=== PATIENT | male | born 1940 | race Caucasian/White ===

== ENCOUNTER 2018-11-08 16:06 | Emergency (ER) | payer MEDICARE ==
[~2018-11-08] VITALS: Ht 167.6 cm; Wt 90.7 kg
[~2018-11-08 16:06] MED LIST: ASPI81CH; ATOR10; FEXO60; LOSHYD PO; METF500; MULVITMIND; OXYACE5T PO; PENVK500 PO; RXOXYACE PO; RXPENVK250 PO; SIMV10 PO; VALS80
[2018-11-08 18:11] LABS: BASOPHILS ABSOLUTE AUTO 0.03 K/mm3 (0.00-0.23); BASOPHILS PERCENT AUTO 0 % (0-2); EOSINOPHILS ABSOLUTE AUTO 0.28 K/mm3 (0.00-0.68); EOSINOPHILS PERCENT AUTO 4 % (0-6); Hematocrit 40.7 % (37.0-53.0); Hemoglobin 13.3 g/dL (13.5-17.5); IMMATURE GRAN ABSOLUTE AUTO 0.02 K/mm3 (0.00-0.10); IMMATURE GRAN PERCENT AUTO 0 % (0-1); LYMPHOCYTES ABSOLUTE AUTO 1.79 K/mm3 (0.84-5.20); LYMPHOCYTES PERCENT AUTO 26 % (21-46); MONOCYTES ABSOLUTE AUTO 0.49 K/mm3 (0.16-1.47); MONOCYTES PERCENT AUTO 7 % (4-13); Mean Corpuscular HGB 31.7 pg (26.0-34.0); Mean Corpuscular HGB Conc 32.7 g/dL (31.5-36.5); Mean Corpuscular Volume 97 fL (80-100); Mean Platelet Volume 10.9 fL (9.1-12.4); NEUTROPHILS ABSOLUTE AUTO 4.35 K/mm3 (1.96-9.15); NEUTROPHILS PERCENT AUTO 63 % (41-73); Platelet Count 147 K/mm3 (150-400); RDW Coefficient Variation 11.9 % (11.7-14.2); RDW Standard Deviation 42.4 fL (35.1-46.3); White Blood Cell Count 6.96 K/mm3 (4.00-11.30)
[2018-11-08 18:48] LABS: Alanine Aminotransfer (ALT/SGP 25 U/L (12-78); Albumin/Globulin Ratio 1.4 (0.8-1.8); Alk Phos 49 U/L (50-136); Anion Gap 6 mmol/L (6-16); Aspartate Aminotrans (AST/SGOT 16 U/L (12-37); Bilirubin, Total 0.5 mg/dL (0.1-1.0); Blood Urea Nitrogen 17 mg/dL (8-24); Bun/Creatinine Ratio 23.2 (12.0-20.0); CO2, Blood 27 mmol/L (21-32); Calcium, Blood 8.8 mg/dL (8.5-10.1); Chloride, Blood 109 mmol/L (98-108); Creatinine, Blood 0.73 mg/dL (0.60-1.20); Globulin, Blood 2.8 g/dL (2.2-4.0); Glomerular Filtration Rate >60 (60-); Glucose, Blood 102 mg/dL (70-99); Potassium, Blood 4.3 mmol/L (3.5-5.5); Sodium, Blood 142 mmol/L (136-145); Total Protein, Blood 6.8 g/dL (6.4-8.2)
[2018-11-08 19:53] LABS: Source, Urine Clean Catch
[2018-11-08 19:59] LABS: Appearance, Urine Clear (Clear); Bilirubin, Urine Neg (Neg); Blood, Urine Neg (Neg); Color, Urine Yellow (P-Yellow); Glucose Qualitative, Urine Neg (Neg); Ketones, Urine Neg (Neg); Leukocyte Esterase, Urine Neg (Neg); Nitrite, Urine Neg (Neg); Protein, Urine Neg (Neg); Urobilinogen, Urine NORM (Normal)
== END 2018-11-08 22:22 | disposition home or self-care (01) ==
LOC: ER 16:06
PROVIDERS: Physician Assistant
DX: R42 Dizziness and giddiness (principal); Z88.1 Allergy status to other antibiotic agents; Z79.899 Other long term (current) drug therapy; Z79.82 Long term (current) use of aspirin; Z87.891 Personal history of nicotine dependence
CPT/HCPCS: 36415; 70450; 80053; 81003; 85025; 93005; 93010; 99284-25

== ENCOUNTER 2019-08-11 16:48 | Emergency (ER) | payer OTHER, MEDICARE ==
[~2019-08-11] VITALS: Ht 167.6 cm; Wt 88.9 kg
[2019-08-11 17:30] LABS: BASOPHILS ABSOLUTE AUTO 0.03 K/mm3 (0.00-0.23); BASOPHILS PERCENT AUTO 1 % (0-2); EOSINOPHILS ABSOLUTE AUTO 0.27 K/mm3 (0.00-0.68); EOSINOPHILS PERCENT AUTO 5 % (0-6); Hematocrit 40.4 % (37.0-53.0); Hemoglobin 13.5 g/dL (13.5-17.5); IMMATURE GRAN ABSOLUTE AUTO 0.02 K/mm3 (0.00-0.10); IMMATURE GRAN PERCENT AUTO 0 % (0-1); LYMPHOCYTES ABSOLUTE AUTO 1.46 K/mm3 (0.84-5.20); LYMPHOCYTES PERCENT AUTO 26 % (21-46); MONOCYTES ABSOLUTE AUTO 0.45 K/mm3 (0.16-1.47); MONOCYTES PERCENT AUTO 8 % (4-13); Mean Corpuscular HGB 32.4 pg (26.0-34.0); Mean Corpuscular HGB Conc 33.4 g/dL (31.5-36.5); Mean Corpuscular Volume 97 fL (80-100); Mean Platelet Volume 10.8 fL (9.1-12.4); NEUTROPHILS ABSOLUTE AUTO 3.33 K/mm3 (1.96-9.15); NEUTROPHILS PERCENT AUTO 60 % (41-73); Platelet Count 150 K/mm3 (150-400); RDW Coefficient Variation 12.5 % (11.7-14.2); RDW Standard Deviation 44.8 fL (35.1-46.3); Red Blood Cell Count 4.17 M/mm3 (4.30-5.90); White Blood Cell Count 5.56 K/mm3 (4.00-11.30)
[2019-08-11 17:54] LABS: Alanine Aminotransfer (ALT/SGP 27 U/L (12-78); Albumin, Blood 3.9 g/dL (3.4-5.0); Albumin/Globulin Ratio 1.3 (0.8-1.8); Alk Phos 51 U/L (50-136); Anion Gap 5 mmol/L (6-16); Aspartate Aminotrans (AST/SGOT 18 U/L (12-37); Bilirubin, Total 0.3 mg/dL (0.1-1.0); Blood Urea Nitrogen 16 mg/dL (8-24); Bun/Creatinine Ratio 18.6 (12.0-20.0); CO2, Blood 27 mmol/L (21-32); Calcium, Blood 8.3 mg/dL (8.5-10.1); Chloride, Blood 106 mmol/L (98-108); Creatinine, Blood 0.86 mg/dL (0.60-1.20); Glomerular Filtration Rate >60 (60-); Glucose, Blood 98 mg/dL (70-99); Potassium, Blood 3.8 mmol/L (3.5-5.5); Sodium, Blood 138 mmol/L (136-145); Total Protein, Blood 6.9 g/dL (6.4-8.2); Troponin I <0.015 ng/mL (0.000-0.040)
[2019-08-11] MEDS ORDERED: MOTION RELIEF25 MG PO (19:43)
[2019-08-11] MEDS ORDERED: Valium5 MG PO (19:43)
== END 2019-08-11 19:57 | disposition home or self-care (01) ==
LOC: ER 16:48
PROVIDERS: Physician Assistant
DX: H81.10 Benign paroxysmal vertigo, unspecified ear (principal); Z88.1 Allergy status to other antibiotic agents; Z79.899 Other long term (current) drug therapy; Z79.82 Long term (current) use of aspirin; Z87.891 Personal history of nicotine dependence
CPT/HCPCS: 36415; 80053; 83690; 84484; 85025; 93005; 93010; 96361; 96374; 96375; 99284-25; J2405; J3360; J7030

== ENCOUNTER → 2019-11-17 | Outpatient (CLI) | payer MEDICARE ==
[~2019-11-17] MED LIST changes: +MOTION RELIEF25 MG PO; +Valium5 MG PO
[2019-11-17 17:45] LABS: Influenza A Negative (NEGATIVE); Influenza B Positive (NEGATIVE)
== END | disposition home or self-care (01) ==
LOC: LAB 17:08 → LAB SHORT 17:08
PROVIDERS: Family Medicine
DX: R05 Cough (principal); R50.9 Fever, unspecified
CPT/HCPCS: 87804

== ENCOUNTER 2022-09-01 19:43 | Emergency (ER) | payer MEDICARE ==
[~2022-09-01] VITALS: Ht 167.6 cm; Wt 88.5 kg
== END 2022-09-02 00:45 | disposition home or self-care (01) ==
LOC: ER 19:43
DX: H43.12 Vitreous hemorrhage, left eye (principal); S42.034A Nondisplaced fracture of lateral end of right clavicle, initial encounter for closed fracture; Y04.2XXA Assault by strike against or bumped into by another person, initial encounter; Y07.499 Other family member, perpetrator of maltreatment and neglect; Z79.82 Long term (current) use of aspirin; Z79.899 Other long term (current) drug therapy; Z88.1 Allergy status to other antibiotic agents; Z87.891 Personal history of nicotine dependence
CPT/HCPCS: 70450; 70480; 73030; A9270

== ENCOUNTER 2022-09-03 11:26 | Emergency (ER) | payer MEDICARE ==
[~2022-09-03] VITALS: Ht 167.6 cm; Wt 81.7 kg
== END 2022-09-03 15:38 | disposition home or self-care (01) ==
LOC: ER 11:26
DX: S05.92XA Unspecified injury of left eye and orbit, initial encounter (principal); Y04.2XXA Assault by strike against or bumped into by another person, initial encounter; Z79.82 Long term (current) use of aspirin; Z79.899 Other long term (current) drug therapy; Z87.891 Personal history of nicotine dependence
CPT/HCPCS: A9270

== ENCOUNTER 2023-02-24 15:41 | Emergency (ER) | payer OTHER ==
[~2023-02-24] VITALS: Ht 167.6 cm; Wt 81.7 kg
[2023-02-24 16:09] VITALS: BP 143/87
== END 2023-02-24 16:30 | disposition home or self-care (01) ==
LOC: ER 15:41
DX: S51.811A Laceration without foreign body of right forearm, initial encounter (principal); W22.8XXA Striking against or struck by other objects, initial encounter; Z88.1 Allergy status to other antibiotic agents; Z79.899 Other long term (current) drug therapy; Z79.82 Long term (current) use of aspirin; Z87.891 Personal history of nicotine dependence
CPT/HCPCS: 99282

== ENCOUNTER 2024-03-06 10:46 | Emergency (ER) | payer MEDICARE ==
[~2024-03-06] VITALS: Ht 167.6 cm; Wt 81.7 kg
[~2024-03-06 10:46] MED LIST changes: +GLYDO6 M2 MM
[2024-03-06 10:49] VITALS: BP 174/69
[2024-03-06 11:09] LABS: BASOPHILS ABSOLUTE AUTO 0.04 K/mm3 (0.00-0.23); BASOPHILS PERCENT AUTO 1 % (0-2); EOSINOPHILS ABSOLUTE AUTO 0.32 K/mm3 (0.00-0.68); EOSINOPHILS PERCENT AUTO 4 % (0-6); Hematocrit 40.4 % (37.0-53.0); Hemoglobin 13.8 g/dL (13.5-17.5); IMMATURE GRAN ABSOLUTE AUTO 0.03 K/mm3 (0.00-0.10); IMMATURE GRAN PERCENT AUTO 0 % (0-1); LYMPHOCYTES ABSOLUTE AUTO 1.29 K/mm3 (0.84-5.20); LYMPHOCYTES PERCENT AUTO 17 % (21-46); MONOCYTES ABSOLUTE AUTO 0.38 K/mm3 (0.16-1.47); MONOCYTES PERCENT AUTO 5 % (4-13); Mean Corpuscular HGB 32.2 pg (26.0-34.0); Mean Corpuscular HGB Conc 34.2 g/dL (31.5-36.5); Mean Corpuscular Volume 94 fL (80-100); Mean Platelet Volume 11.2 fL (9.1-12.4); NEUTROPHILS PERCENT AUTO 73 % (41-73); Platelet Count 165 K/mm3 (150-400); RDW Coefficient Variation 12.2 % (11.7-14.2); RDW Standard Deviation 42.1 fL (35.1-46.3); Red Blood Cell Count 4.29 M/mm3 (4.30-5.90); White Blood Cell Count 7.56 K/mm3 (4.00-11.30)
[2024-03-06 11:30] LABS: Albumin, Blood 3.6 g/dL (3.4-5.0); Albumin/Globulin Ratio 1.2 (0.8-1.8); Bilirubin, Total 0.6 mg/dL (0.1-1.0); Bun/Creatinine Ratio 19.5 (12.0-20.0); Calcium, Blood 8.7 mg/dL (8.5-10.1); Creatinine, Blood 0.77 mg/dL (0.60-1.20); Globulin, Blood 2.9 g/dL (2.2-4.0); Potassium, Blood 4.4 mmol/L (3.5-5.5); Total Protein, Blood 6.5 g/dL (6.4-8.2)
[2024-03-06] MEDS ORDERED: Atropine Sulfate 0.1 MG/ML 10ML SYR IV PRN (13:20)
[2024-03-06] MEDS ORDERED: Acetaminophen 325 MG TABLET PO PRN (13:20)
[2024-03-06] MEDS ORDERED: Ondansetron HCl 2 MG / ML 2ML Vial IV PRN (13:20)
[2024-03-06] MEDS ORDERED: Lactated Ringer's 1,000 ML IV SCH (14:00)
[2024-03-06] MEDS ORDERED: Insulin Human Lispro 100 Units/ML 3ML Syringe SC SCH (16:30)
[2024-03-07] MEDS ORDERED: Heparin Sodium,Porcine 5,000 UNIT/0.5 ML SDV SC SCH (09:00)
== END 2024-03-06 14:10 | disposition left against medical advice (07) ==
LOC: ER 10:46
PROVIDERS: Emergency Medicine
DX: R00.1 Bradycardia, unspecified (principal); E11.9 Type 2 diabetes mellitus without complications; Z88.1 Allergy status to other antibiotic agents; Z79.84 Long term (current) use of oral hypoglycemic drugs; Z79.82 Long term (current) use of aspirin; Z79.899 Other long term (current) drug therapy
CPT/HCPCS: 80053; 84484; 85025; 93005; 93010; 99284-25; A9270

== ENCOUNTER 2024-08-03 08:11 | Inpatient (IN) | payer OTHER, MEDICARE ==
[2024-08-03] VITALS (13 sets, daily range): BP systolic 108–178; BP diastolic 57–105
[~2024-08-03] VITALS: Ht 167.6 cm; Wt 82.3 kg
[~2024-08-03 08:11] MED LIST changes: -ASPI81CH; +ASPI81CH PO
[2024-08-03] MEDS ORDERED: Tetracaine HCl/Pf 0.5% Opth Soln 4 ml BOTHEYES ONE (08:55)
[2024-08-03] MEDS ORDERED: Fluorescein Sod 1MG Opth Strips LEFTEYE ONE (08:55)
[2024-08-03] MEDS ORDERED: Ofloxacin 0.3% Opth Soln 5 ML LEFTEYE ONE (09:35)
[2024-08-03] MEDS ORDERED: Ofloxacin 0.3% Opth Soln 5 ML LEFTEYE SCH (09:45)
[2024-08-03] MEDS ORDERED: Ondansetron HCl 2 MG / ML 2ML Vial IV PRN (10:25)
[2024-08-03] MEDS ORDERED: FLU VACC TS2024-25(6MOS UP)/PF 45 MCG/0.5 ML SYRINGE IM SCH (10:30)
[2024-08-03] MEDS ORDERED: HYDROcodone 5-APAP 325 TAB PO PRN (10:30)
[2024-08-03] MEDS ORDERED: Morphine Sulfate 4 MG/1 ML Injection IV PRN (10:30)
[2024-08-03] MEDS ORDERED: DONEPEZIL HCL5 M2 PO (10:38)
[2024-08-03] MEDS ORDERED: METFORMIN HCL500 M3 PO (10:38)
[2024-08-03] MEDS ORDERED: Clindamycin 900mg in D5W 50ML 50 ML IV SCH ×2 (10:50→22:00)
[2024-08-03] MEDS ORDERED: Tranexamic Acid 100 ML IV SCH (10:50)
[2024-08-03 10:56] LABS: BASOPHILS ABSOLUTE AUTO 0.04 K/mm3 (0.00-0.23); BASOPHILS PERCENT AUTO 0 % (0-2); EOSINOPHILS ABSOLUTE AUTO 0.18 K/mm3 (0.00-0.68); EOSINOPHILS PERCENT AUTO 2 % (0-6); IMMATURE GRAN ABSOLUTE AUTO 0.04 K/mm3 (0.00-0.10); IMMATURE GRAN PERCENT AUTO 0 % (0-1); LYMPHOCYTES ABSOLUTE AUTO 1.07 K/mm3 (0.84-5.20); LYMPHOCYTES PERCENT AUTO 10 % (21-46); MONOCYTES ABSOLUTE AUTO 0.43 K/mm3 (0.16-1.47); MONOCYTES PERCENT AUTO 4 % (4-13); Mean Corpuscular HGB 31.5 pg (26.0-34.0); Mean Corpuscular HGB Conc 34.1 g/dL (31.5-36.5); Mean Corpuscular Volume 92 fL (80-100); Mean Platelet Volume 10.7 fL (9.1-12.4); NEUTROPHILS ABSOLUTE AUTO 9.25 K/mm3 (1.96-9.15); NEUTROPHILS PERCENT AUTO 84 % (41-73); Platelet Count 167 K/mm3 (150-400); RDW Coefficient Variation 12.1 % (11.7-14.2); RDW Standard Deviation 41.4 fL (35.1-46.3); Red Blood Cell Count 4.44 M/mm3 (4.30-5.90); White Blood Cell Count 11.01 K/mm3 (4.00-11.30)
[2024-08-03 11:10] LABS: International Normalized Ratio 1.02; Prothrombin Time Results 10.9 Sec (9.7-11.5)
[2024-08-03 11:16] LABS: Albumin, Blood 3.6 g/dL (3.4-5.0); Albumin/Globulin Ratio 1.2 (0.8-1.8); Bilirubin, Total 0.8 mg/dL (0.1-1.0); Bun/Creatinine Ratio 21.6 (12.0-20.0); Calcium, Blood 8.8 mg/dL (8.5-10.1); Creatinine, Blood 0.79 mg/dL (0.60-1.20); Globulin, Blood 3.1 g/dL (2.2-4.0); Potassium, Blood 4.5 mmol/L (3.5-5.5); Total Protein, Blood 6.7 g/dL (6.4-8.2)
[2024-08-03] MEDS ORDERED: Insulin Regular 100 UNIT/ML 10ML Vial SC SCH (11:30)
[2024-08-03] MEDS ORDERED: Lactated Ringer's 1,000 ML IV ONE (12:46)
--- NOTE | 2024-08-03 13:12 | NUR ---
PT ARRIVED TO UNIT FROM ED ON R, ACCOMPANIED BY SPOUSE. TRANSFERRED TO BED AND REMOVED LINENS AND UNDERWEAR. ORIENTED TO USE OF CALL LIGHT. BED ALARM ON FOR SAFETY. PT LOOKS TO FOR ANSWERS TO MED HX QUESTIONS. APPEARS TO BE NONCOMPLIANT WITH HOME MEDS FROM WHAT PT AND SPOUSE REPORT. METFORMIN DOSAGE UNKNOWN BY PT AND SPOUSE. PT REPORTS DRINKS 1-2 TIMES PER WEEK/SPOUSE INDICATES MORE FREQUENTLY. PT STATES DRINKS BEER, WINE OR MIXED DRINKS. 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 STATES HAS SLEEP APNEA BUT DOES NOT USE HOME CPAP. ON 2L 02 DUE TO DESAT IN ED RESTING. DR KHALIL IN TO SEE PT. OR RNS IN ROOM TO TAKE PT FOR PROCEDURE.
[2024-08-03] MEDS ORDERED: propofoL 20 ML IV ONE (13:22)
[2024-08-03] MEDS ORDERED: FentaNYL Citrate 50 MCG/ML 2 ML Injection ONE (13:22)
--- NOTE | 2024-08-03 13:25 | NUR ---
PT TO PRE OP
[2024-08-03] MEDS ORDERED: Bupivacaine 0.5% HCl 5 MG/ML 30MLVIAL ONE (13:32)
--- NOTE | 2024-08-03 13:45 | NUR ---
PT IN PACU FOR PRE-OP, Landry CROWDER CRNA CONSULTING WITH PT
--- NOTE | 2024-08-03 14:53 | NUR ---
08/03/24 1453 Lyndsey Manning TWO SMALL SKIN TEARS NOTED ON PATIENT'S RIGHT ARM WERE PRIOR TO ENTRY TO OR. SKIN TEARS WERE DRESSED WITH TEGADERM PRIOR TO ENTRY INTO THE OR.
[2024-08-03] MEDS ORDERED: Folic Acid 1 MG TAB PO SCH (15:55)
[2024-08-03] MEDS ORDERED: Thiamine HCl 100 MG Tab PO SCH (15:55)
--- NOTE | 2024-08-03 16:03 | NUR ---
PT ARRIVED TO UNIT FROM PACU. AQUACEL DRESSING TO R HIP CDI. PT PLACED ON TELE PER ORDERS. PT AWAKE BUT CONFUSED. RECOGNIZES SPOUSE. UNABLE TO RATE PAIN ON PAIN SCALE. PROVIDED ICE WATER AND JELLO/CRACKERS. BOOSTED PT UP IN BED, CALL LIGHT IN REACH, BED ALARM ON. SPOUSE BEDSIDE.
--- NOTE | 2024-08-03 18:24 | NUR ---
SUMMARY PT POD 0 FOR R PERCUTANEOUS HIP PINNING. AQUACEL TO R HIP CDI. MEDICATED PT PER ORDERS FOR PAIN USING FLACC SCALE. PT REPORTED PAIN SOMEWHAT IMPROVED BUT COULD NOT RATE ON PAIN SCALE. BED ALARM ON FOR SAFETY. REPORTS PATIENT HAS SEVERE MEMORY ISSUES. CALL LIGHT IN REACH.
[2024-08-03] MEDS ORDERED: Sennosides 8.6 MG Tab PO SCH (21:00)
[2024-08-03] MEDS ORDERED: Docusate Sodium 100 MG Cap PO SCH (21:00)
[2024-08-03] MEDS ORDERED: NS 1,000 ML BAG IR PRN (21:45)
[2024-08-03] MEDS ORDERED: NS 250 ML IV SCH (22:00)
[2024-08-04 00:34] VITALS: BP 135/75
[2024-08-04 03:19] VITALS: BP 140/78
--- NOTE | 2024-08-04 04:20 | NUR ---
SHIFT SUMMARY ZAID WAS ALERT AND ORIENTED TO SELF, SITUATION, AND CITY ON ASSESMENT. PT STATES THAT PAIN IS VERY MILD AND DOES NOT NEED MEDICATION. TISSUE AROUND INSCISION SITE NOTED TO BE SWOLLEN AND TIGHT FEELING TO TOUCH. DISTAL CIRCULATION AND SENSATION INTACT. DRESSING C/D/I. PT MOVED FROM BACK OF MELENDEZ TO FRONT OF MELENDEZ FOR INCREASED SUPERVISION. PT RESTING IN BED AT THIS TIME WITH CALL LIGHT IN PLACE AND BED ALARM ON FOR SAFETY. NO ACUTE EVENTS TONIGHT. NO NOTED CHANGES TO PT CONDITION.
[2024-08-04 05:28] LABS: BASOPHILS ABSOLUTE AUTO 0.01 K/mm3 (0.00-0.23); BASOPHILS PERCENT AUTO 0 % (0-2); EOSINOPHILS ABSOLUTE AUTO 0.01 K/mm3 (0.00-0.68); EOSINOPHILS PERCENT AUTO 0 % (0-6); Hematocrit 37.2 % (37.0-53.0); Hemoglobin 12.9 g/dL (13.5-17.5); IMMATURE GRAN ABSOLUTE AUTO 0.06 K/mm3 (0.00-0.10); IMMATURE GRAN PERCENT AUTO 1 % (0-1); LYMPHOCYTES ABSOLUTE AUTO 0.82 K/mm3 (0.84-5.20); LYMPHOCYTES PERCENT AUTO 7 % (21-46); MONOCYTES ABSOLUTE AUTO 0.59 K/mm3 (0.16-1.47); MONOCYTES PERCENT AUTO 5 % (4-13); Mean Corpuscular HGB 31.7 pg (26.0-34.0); Mean Corpuscular HGB Conc 34.7 g/dL (31.5-36.5); Mean Corpuscular Volume 91 fL (80-100); Mean Platelet Volume 10.9 fL (9.1-12.4); NEUTROPHILS ABSOLUTE AUTO 9.62 K/mm3 (1.96-9.15); NEUTROPHILS PERCENT AUTO 87 % (41-73); Platelet Count 175 K/mm3 (150-400); RDW Coefficient Variation 12.2 % (11.7-14.2); RDW Standard Deviation 40.9 fL (35.1-46.3); Red Blood Cell Count 4.07 M/mm3 (4.30-5.90); White Blood Cell Count 11.11 K/mm3 (4.00-11.30)
[2024-08-04 05:57] LABS: Bun/Creatinine Ratio 23.6 (12.0-20.0); Calcium, Blood 8.6 mg/dL (8.5-10.1); Creatinine, Blood 0.93 mg/dL (0.60-1.20); Potassium, Blood 4.5 mmol/L (3.5-5.5)
[2024-08-04 07:17] VITALS: BP 136/75
--- NOTE | 2024-08-04 07:45 | NUR ---
REPORT FROM CARMELITA BETH. ASSUMING CARE.
[2024-08-04] MEDS ORDERED: Enoxaparin 40 MG/0.4 ML SYR SC SCH (09:00)
[2024-08-04 14:22] VITALS: BP 130/80
--- NOTE | 2024-08-04 15:39 | NUR ---
PT SEEMING TO BECOME MORE CONFUSED AND AGITATED OVER THE LAST 2 HOURS AFTER VISITORS LEFT. PT HAS FAMILY IN ROOM AND PT THINKS HE IS LEAVING TODAY EVEN AFTER BEING EXPLAINED THAT HE WILL BE STAYING THE NIGHT AGAIN. PT SEEMS TO FORGET WHAT IS SAID EVEN AFTER A FEW MINUTES. PT DOES REPORT PAIN 4/10 SO HE WAS GIVEN PRN PAIN MEDICATION. PT SET CHAIR ALARM OFF MULTIPLE TIMES. PT ASSISTED TO BE. SIDE RAILS X3 UP AND CALL LIGHT IN REACH. PT MOSTLY REPONSIVE TO VERBAL REDIRECTION. CHANNEL CHANGED TO HISTORY CHANNEL, WHICH PT SEEMS TO LIKE. DOOR LEFT OPEN AND BED ALARM IN PLACE.
--- NOTE | 2024-08-04 15:49 | NUR ---
PT CRAWLED OVER THE TOP OF SIDE RAIL ON BED AND IS FOUND STANDING IN ROOM WITH BED ALARM OFF. PT SAYS THAT HE IS JUST GOING HOME. PT REDIRECTED BACK TO CHAIR. PT IS NOW READING NEWS PAPER. DR MILLER NOTIFIED.
[2024-08-04] MEDS ORDERED: QUEtiapine Fumarate 25 MG Tab PO SCH (16:00)
--- NOTE | 2024-08-04 16:44 | NUR ---
REPORT TO RN MEDICAL FLOOR
--- NOTE | 2024-08-04 16:55 | NUR ---
PT TRANSFERRED TO MEDICAL FLOOR. ATTEMPT TO CALL PT'S TO UPDATE BUT NO ANSWER OR VOICEMAIL.
[2024-08-04] MEDS ORDERED: MetFORMIN HCl 500 mg PO SCH (17:00)
--- NOTE | 2024-08-04 18:48 | NUR ---
SHIFT SUMMARY PT TRANSFERED FROM ROOM 213 THIS SHIFT TO ROOM 353. PT NOTED TO BE A&O TO SELF AND PLACE. PT NOTED TO HAVE INTERMITTEN CONFUSION AND FORGETFULNESS. PT NOTED TO BE IMPULSIVE BED ALARMS IN PLACE. PT NOTED TO BE ASSIST X1 WITH FWW. DSG TO R HIP C/D/I.
[2024-08-04 19:21] VITALS: BP 141/82
[2024-08-04] MEDS ORDERED: QUEtiapine Fumarate 50 MG TAB PO SCH (21:00)
--- NOTE | 2024-08-05 03:28 | NUR ---
UNIVERSITY EXTENSION SPECIALIST SUMMARY VSS. PT CONFUSED AND NOT REDIRECTABLE, EVEN AFTER TAKING PT MEDS OF SEROQUEL (SEE MAR), BEHAVIOR CONTINUES TO BE HIGH FALL RISK. RIGHT HIP SURGERY SITE CDI, CONTINUED TO GET OOB. CALL PLACED TO MD AND KOKI AND 4 RAILS RESTRAINTS ORDERS RECEIVED. PT INITIALLY RIPPED INITIAL KOKI APART AND VOICED HIS OPPOSIITON TO SUCH, BUT REFUSED TO REDIRECT AND CONTINUED TO TRY OOB WITHHIGH FALL RISK. PAIN MED GIVEN AND REDIRECTED TO BED, NEW KOKI APPLIED AND RAILS UP X 4 AND FEET ELEVATED FOR SAFETY. PT EVENTUALLY CALMED DOWN AND IS CURRENTLY RESTING QUIETLY. MEDICATIONS ENCOURAGED. WILL CONTINUE TO MONITOR
--- NOTE | 2024-08-05 05:07 | NUR ---
INTERMITTENT ATTEMPTS TO VOID BUT UNABLE TO. BLADDER SCANNED AND 745 NOTED, NOTIFIED AND ORDERS FOR STARIGHT CATH X 1 AND TO RE SCAN BLADDER IN 6 HRS. 850 CC OUT PER STRAIGHT CATH WITH ASEPTIC TECHNIQUE. VOICED FEELING BETTER. WILL ASK AM STAFF TO RESCAN BLADDER AT 10 AM.
[2024-08-05 07:15] VITALS: BP 144/80
[2024-08-05 11:06] LABS: Source, Urine Foley catheter
[2024-08-05 11:19] LABS: Appearance, Urine Clear (Clear); Bilirubin, Urine Neg (Neg); Blood, Urine 5+ (Neg); Color, Urine Yellow (P-Yellow); Glucose Qualitative, Urine 3+ (Neg); Ketones, Urine Neg (Neg); Leukocyte Esterase, Urine Neg (Neg); Nitrite, Urine Neg (Neg); Protein, Urine 2+ (Neg); Urobilinogen, Urine NORM (Normal)
[2024-08-05 11:45] LABS: White Blood Cells, Urine 0-2 /hpf (0-5)
[2024-08-05 11:46] LABS: Bacteria Rare /hpf; Squamous Epithelial Cells Rare /hpf (Few)
[2024-08-05 15:37] VITALS: BP 124/72
[2024-08-05] MEDS ORDERED: Thiamine HCl 300 MG in NS 100 ML IV ONE (15:45)
--- NOTE | 2024-08-05 17:58 | NUR ---
SHIFT SUMMARY PT A&OX2 AND CONFUSED W/ VISUAL HALLUCINATIONS, VSS, 1-2P ASSIST FROM BED TO CHAIR, TOLERATING PO, VOIDING, AND PAIN MANAGED PER EMAR. TRAVIS CATH PLACED THIS AM DUE TO RETENTION. AQUACEL DRESSING REMAINS C/D/I. PT CONT TO BE IN KOKI VEST. PT ATTEMPTING TO AMB OOB UNSAFELY, NOT CALL APPROPRIATELY, PULL AT LINES AND TRAVIS, AND UNABLE TO BE DIRECTABLE. PT PULLED IV OUT THIS AM, NO IV ACCESS ORDER RECEIVED. NO OTHER ACUTE CHANGES. CALL LIGHT WITHIN REACH AND CHAIR ALARM ON.
[2024-08-05 19:22] VITALS: BP 102/78
[2024-08-06 05:15] VITALS: BP 147/68
[2024-08-06 05:44] LABS: BASOPHILS ABSOLUTE AUTO 0.03 K/mm3 (0.00-0.23); BASOPHILS PERCENT AUTO 0 % (0-2); EOSINOPHILS ABSOLUTE AUTO 0.49 K/mm3 (0.00-0.68); EOSINOPHILS PERCENT AUTO 6 % (0-6); Hematocrit 34.4 % (37.0-53.0); Hemoglobin 11.8 g/dL (13.5-17.5); IMMATURE GRAN ABSOLUTE AUTO 0.05 K/mm3 (0.00-0.10); IMMATURE GRAN PERCENT AUTO 1 % (0-1); LYMPHOCYTES ABSOLUTE AUTO 1.73 K/mm3 (0.84-5.20); LYMPHOCYTES PERCENT AUTO 21 % (21-46); MONOCYTES ABSOLUTE AUTO 0.64 K/mm3 (0.16-1.47); MONOCYTES PERCENT AUTO 8 % (4-13); Mean Corpuscular HGB 31.5 pg (26.0-34.0); Mean Corpuscular HGB Conc 34.3 g/dL (31.5-36.5); Mean Corpuscular Volume 92 fL (80-100); Mean Platelet Volume 11.1 fL (9.1-12.4); NEUTROPHILS ABSOLUTE AUTO 5.13 K/mm3 (1.96-9.15); NEUTROPHILS PERCENT AUTO 64 % (41-73); Platelet Count 158 K/mm3 (150-400); RDW Standard Deviation 40.6 fL (35.1-46.3); Red Blood Cell Count 3.75 M/mm3 (4.30-5.90); White Blood Cell Count 8.07 K/mm3 (4.00-11.30)
--- NOTE | 2024-08-06 05:49 | NUR ---
FLY MAKER SUMMARY VSS. INTERMITTENT ATTEMPTS TO GET OUT OF CHAIR AND BED WITH HIGH FALL RISK DUE TO RIGHT HP FX AND REPSIR. NOT RECEPTIVE TO REDIRECTION. EASILY AGITATED. KOKI RESTRAINT IN USE THROUGHOUT NOCT. TRAVIS DRAINING. HAS BEEN RESTING QUIETLY WITH FEW INTERRUPTIONS. CALL LIGHT IN REACH, RAILS UP X 2 AND BED IN LOW POSITION FOR SAFETY. KOKI RESTRAINT REMOVED AT 0610 HE IS LYING IN BED WITHOUT NOTED AGITATION. WILL MONITOR
[2024-08-06 06:11] LABS: Bun/Creatinine Ratio 21.2 (12.0-20.0); Calcium, Blood 8.8 mg/dL (8.5-10.1); Creatinine, Blood 0.9 mg/dL (0.60-1.20); Potassium, Blood 3.9 mmol/L (3.5-5.5)
[2024-08-06 07:56] VITALS: BP 136/76
[2024-08-06] MEDS ORDERED: Finasteride 5 MG Tab PO SCH (09:00)
[2024-08-06] MEDS ORDERED: Tamsulosin HCl 0.4 MG Cap PO SCH (09:00)
[2024-08-06] MEDS ORDERED: Acetaminophen 500 MG Tab PO PRN (13:25)
[2024-08-06 16:56] VITALS: BP 124/69
[2024-08-06] MEDS ORDERED: QUEtiapine Fumarate 25 MG Tab PO PRN (17:10)
[2024-08-06 20:08] VITALS: BP 124/59
--- NOTE | 2024-08-06 20:14 | NUR ---
SHIFT SUMMARY- PT ALERT AND ORIENTED, MOST OF THE DAY, AT THE TIME OF BEDSIDE REPORT HE ASKED THIS RN IF THE KIDS WERE IN BED. REDIRECTED AND REORIENTED HIM. THE PT STATED HE WAS THINKING ABOUT NAM (REFERRING TO HIS TIME IN [place]) NIGHT RN AWARE. PRN SEROQUEL AVAILABLE IF NEEDED. PT IN BED, DRESSING CHANGED ON THE HIP, D/T DRESSING COMMING OFF, DERMAL AVINASH IN PLACE C/D/I. NO SIGNS OF REDNESS OR SWELLING. PT IN BED SLEEPING NO S&S OF DISTRESS NOTED AT THE TIME OF BEDSIDE REPORT.
[2024-08-06] MEDS ORDERED: Celecoxib 100 MG Cap PO SCH (21:00)
[2024-08-06] MEDS ORDERED: DONEPEZIL HCL5 M2 PO (22:51)
[2024-08-07 04:04] VITALS: BP 122/56
--- NOTE | 2024-08-07 06:34 | NUR ---
AAO TO SELF, PLEASANT AND COOPERATIVE. SLEPT THROUGHOUT THE NIGHT WITH ANY CONCERNS OR COMPLICATIONS. DRESSING TO R HIPIS CDI. PT DID NOT GET OUT OF BED THIS SHIFT.
[2024-08-07 07:45] VITALS: BP 133/71
--- NOTE | 2024-08-07 09:52 | NUR ---
PT AND DR RODRIGUEZ ROUNDED ON PATIENT, ANSWERS QUESTIONS APPRIATELY, NOT IMPULSIVE, OOB IN CHAIR FOR BREAKFAST, BED/CHAIR ALARM ON
[2024-08-07 15:32] VITALS: BP 143/71
--- NOTE | 2024-08-07 17:48 | NUR ---
NO ACUTE CHANGES, MORE CONFUSED AT NIGHT, MEDICATED FOR PAIN, ABLE TO MAKE NEEDS KNOWN BUT HAS A HARD TIME FIGURING OUT WHAT HE WANTS OR NEEDS, VISITED TODAY, CALLLIGHT WITH IN REACH, BED/CHAIR ALARM ON, WILL RELAY TO PM RN
[2024-08-07 20:37] VITALS: BP 92/73
[2024-08-08 03:32] VITALS: BP 135/74
--- NOTE | 2024-08-08 05:49 | NUR ---
ORIENTED TO SELF. PT HAD A ROUGH, RESTLESS NIGHT. HE WAS WORRIED ABOUT HIS DAUGHTER AND THOUGHT HE NEEDED TO GO PICK HER UP, HIS THOUGHT PROCESS NERVER WAVERED BUT RE-ORIENTATION DID NOT LAST LONG. HE IS PLEASANT AND COOPERATIVE WITH REQUESTS. AMBULTED WITH WALKER, STEADY GAIT ASSISTED BY DEHAIRING MACHINE TENDER TO BR AND FORGOT WHAT WHY HE WANTED TO GO IN THERE. PLAN IS TO GO HOME, PT HAS A PERSONAL LODGE ATTENDANT.
[2024-08-08 07:08] VITALS: BP 143/67
[2024-08-08 14:30] VITALS: BP 128/61
--- NOTE | 2024-08-08 18:21 | NUR ---
SHIFT SUMMARY PATIENT A/OX2-3, ABLE TO MAKE NEEDS KNOWN. IMPULSIVE AND CONFUSED BED ALARM IN PLACE. TRAVIS CATH REMOVED THIS AFTERNOON, PATIENT TOLERATED WELL AND IS VOIDING APPROPRIATELY. NORCO ADMINISTERED PER NOV FOR RIGHT HIP PAIN. DRESSING TO RIGHT HIP CLEAN DRY AND INTACT, WITH SURROUNDING PURPLE BRUISING. PATIENT PARTICIPATED IN PHYSICAL AND OCCUPATIONAL THERAPY THIS SHIFT AND ABLE TO AMBULATE TO BATHROOM WITH 1 PERSON ASSIST. SPOUSE, OLI, AT BEDSIDE MAJORITY OF THIS SHIFT AND FRIENDS CAME TO VISIT PATIENT WELL. NO PIV AND NO TELEMETRY MONITORING. NO OTHER CONCERNS AT THIS TIME. PLAN TO DISCHARGE TOMORROW PER DR. NOBLE.
[2024-08-08 19:47] VITALS: BP 121/102
--- NOTE | 2024-08-09 04:34 | NUR ---
Patient A&O3-4 but very confused requiring frequent reorientation t/o the shift, VSS, declined need for pain medications, slept t/o most of the shift, sleeping at this time with call light in reach and bed alarm active, will cont to monitor until report given to oncoming nurse.
[2024-08-09 07:26] VITALS: BP 142/76
[2024-08-09 14:59] VITALS: BP 130/76
--- NOTE | 2024-08-09 18:43 | NUR ---
SHIFT SUMMARY PATIENT A/OX3, BUT CONFUSED INTERMITTENTLY AND IMPUSILVE AT TIMES. PRN PAIN MEDICATION ADMINISTERED X2 THIS SHIFT. PATIENT RETAINING URINE THIS AFTERNOON AND NEEDED TO BE STRAIGHT CATHED X1, 750ML OBTAINED. WAS ABLE TO VOID INDEPENDENTLY THIS EVENING. MD AWARE AND ORDERS IN PLACE TO STRAIGHT CATH PRN OF BLADDER SCAN SHOWS >300ML. BLADDER SCAN ORDER IN PLACE. PATIENT ABLE TO AMBULATE 1 PERSON ASSIST. NO OTHER CONCERNS AT THIS TIME. PENDING PLACEMENT AND INSURANCE AUTH.
[2024-08-09 19:38] VITALS: BP 134/71
--- NOTE | 2024-08-09 22:31 | NUR ---
Pt assisted to bathroom 3x since start of shift. Pt having moderate-large unmeasured voids. Post void bladder scan showed zero mls in bladder. Pt retaining earlier todady. WCTM for urine retention and bladder scan per order.
--- NOTE | 2024-08-10 04:52 | NUR ---
ASSIGNMENT EDITOR SUMMARY PT A/OX3. NO ACUTE CHANGES. PT VOIDING WELL T/O THE NIGHT. BLADDER SCANNED POST VOID WITH 0 MLS. PT C/O OF PAIN IN RIGH HIP AND RIGHT KNEE. MED WITH NORCO WITH GOOD EFFECT. PT CALL LIGHT IN REACH. BED ALARM IN PLACE. WCTM UNTIL REPORT GIVEN TO ONCOMING NURSE.
[2024-08-10 05:23] VITALS: BP 137/69
[2024-08-10 05:42] LABS: BASOPHILS ABSOLUTE AUTO 0.06 K/mm3 (0.00-0.23); BASOPHILS PERCENT AUTO 1 % (0-2); EOSINOPHILS ABSOLUTE AUTO 0.67 K/mm3 (0.00-0.68); EOSINOPHILS PERCENT AUTO 9 % (0-6); Hematocrit 33.8 % (37.0-53.0); Hemoglobin 11.4 g/dL (13.5-17.5); IMMATURE GRAN ABSOLUTE AUTO 0.06 K/mm3 (0.00-0.10); IMMATURE GRAN PERCENT AUTO 1 % (0-1); LYMPHOCYTES ABSOLUTE AUTO 1.54 K/mm3 (0.84-5.20); LYMPHOCYTES PERCENT AUTO 20 % (21-46); MONOCYTES ABSOLUTE AUTO 0.73 K/mm3 (0.16-1.47); MONOCYTES PERCENT AUTO 10 % (4-13); Mean Corpuscular HGB Conc 33.7 g/dL (31.5-36.5); Mean Corpuscular Volume 92 fL (80-100); Mean Platelet Volume 10.7 fL (9.1-12.4); NEUTROPHILS ABSOLUTE AUTO 4.54 K/mm3 (1.96-9.15); NEUTROPHILS PERCENT AUTO 60 % (41-73); Platelet Count 215 K/mm3 (150-400); RDW Standard Deviation 40.5 fL (35.1-46.3); Red Blood Cell Count 3.68 M/mm3 (4.30-5.90)
[2024-08-10 06:10] LABS: Albumin, Blood 3.1 g/dL (3.4-5.0); Albumin/Globulin Ratio 1.1 (0.8-1.8); Bilirubin, Total 0.9 mg/dL (0.1-1.0); Bun/Creatinine Ratio 22.7 (12.0-20.0); Calcium, Blood 9.1 mg/dL (8.5-10.1); Creatinine, Blood 0.84 mg/dL (0.60-1.20); Globulin, Blood 2.9 g/dL (2.2-4.0); Potassium, Blood 4.1 mmol/L (3.5-5.5)
[2024-08-10 07:23] VITALS: BP 145/70
[2024-08-10 15:00] VITALS: BP 127/81
[2024-08-10] MEDS ORDERED: Polyethylene Glycol 3350 17 gm PO ONE (16:00)
[2024-08-10] MEDS ORDERED: Polyethylene Glycol 3350 17 gm PO PRN (16:00)
--- NOTE | 2024-08-10 17:05 | NUR ---
SHIFT SUMMARY PATIENT A/OX3, ABLE TO MAKE NEEDS KNOWN. REMAINS IMPULSIVE, BED ALARM IN PLACE. ADMINISTERED NORCO THIS MORNING FOR RIGHT HIP PAIN. MD NOTIFIED THIS MORNING THAT PATIENT IS ON DAY 3 WITH NO BM, ONE TIME ORDER OF MIRALAX GIVEN THIS EVENING WITH NO RESULTS AT THIS TIME. PATIENT NEEDING ENCOURAGEMENT TO VOID, POST VOID RESIDUAL THIS EVENING 67ML. SPOUSE, OLI, AT BEDSIDE MOST OF SHIFT TODAY. NO OTHER CONCERNS AT THIS TIME.
[2024-08-10 20:09] VITALS: BP 149/80
[2024-08-11 04:26] VITALS: BP 130/80
--- NOTE | 2024-08-11 05:35 | NUR ---
CERTIFIED ALCOHOL DRUG COUNSELOR SUMMARY PT IS ALERT, ORIENTED 2-3 WITH CONFUSION. PT IMPULSIVE AT TIMES BUT VERY PLEASANT AND REDIRECTABLE. PT HAS URINARY URGENCY T/O THE NIGHT. PT IS VOIDING MODERATE-LARGE AMOUNTS 5 TIMES THIS SHIFT SO FAR. PT DRESSING TO RIGHT HIP IS INTACT. BRUISING NOTED TO RIGHT HIP AND BACK OF LLE. SHANNON HOSE PLACED THIS SHIFT. NO ACUTE CHANGES. CALL LIGHT IS IN REACH AND BED ALARM IS IN PLACE. REGULAR INTERVAL ROUNDING COMPLETE Q2 HOURS AND PRN. PT DID GIVE THIS RN VERBAL PERMISSION TO SPEAK WITH DAUGHTER--HOA NESS (PEFERS TO GO BY THI). THI CALLED AND SPOKE WITH THIS RN. THI STATES THE PATIENT REMARRIED AND SHE DID NOT FIND OUT PT WAS IN THE HOSPITAL UNTIL YESTERDAY. INFORMED THI OF REASON FOR ADMIT, PT ORIF SURGICAL FX OF RIGHT HIP AND PLAN TO DC TO [facility]. DAUGHTER REQUESTED CALLS WITH UPDATE. ADVISED THI THE HOSPITAL WITH CONTACT PT'S FIRST WITH CHANGES/UPDATES AND HOSPITAL WILL NOT GENERALLLY CONTACT MULTIPLE FAMILY MEMBERS. THI VERBALIZED UNDERSTANDING.
[2024-08-11 07:47] VITALS: BP 123/67
[2024-08-11 11:26] LABS: CORONAVIRUS COVID-19 AG Negative (NEGATIVE)
[2024-08-11] MEDS ORDERED: DOCU100 PO (12:49)
[2024-08-11] MEDS ORDERED: ACET500 PO (12:49)
[2024-08-11] MEDS ORDERED: HYDR1TAB94 PO (12:50)
[2024-08-11] MEDS ORDERED: FINA5 PO (12:50)
[2024-08-11] MEDS ORDERED: MIRALAX17 GM PO (12:50)
[2024-08-11] MEDS ORDERED: QUET25 PO (12:51)
[2024-08-11] MEDS ORDERED: Seroquel Xr50 MG PO (12:51)
[2024-08-11] MEDS ORDERED: TAMS.4ER PO (12:52)
[2024-08-11] MEDS ORDERED: SENN187 PO (12:52)
[2024-08-11] MEDS ORDERED: FAMO20 PO (12:53)
[2024-08-11 15:25] VITALS: BP 132/68
--- NOTE | 2024-08-11 16:25 | NUR ---
ATTEMPTED CALL TO [facility] FOR REPORT @ 2366. ON HOLD UNTIL 162 WITH NO ANSWER. WILL ATTEMPT TO CALL BACK.
--- NOTE | 2024-08-11 17:48 | NUR ---
SPOKE WITH [facility]. STATED PT IS NEXT ON LIST FOR TRANSPORT TO [facility]. CALLED [facility] BACK AND SPOKE WITH CARMELITA DRAPER TO GIVE REPORT ON PT.
--- NOTE | 2024-08-11 18:02 | NUR ---
DISCHARGE: PT D/C @ 1800 VIA WHEELCHAIR WITH TRANSPORT AND FAMILY TO [facility]. REPORT CALLED TO CARMELITA DRAPER AT FACILITY. PT C/O 1-2 PAIN THIS SHIFT IN R. HIP. AQUACEL DRESSING REMAINED C/D/I. PT HAD MEDIUM FORMED BM PRIOR TO D/C. ALL BELONGINGS AND D/C PACKET SENT WITH TRANSPORT. HARD SCRIPT FOR NORCO PLACED IN D/C PACKET. NO QUESTIONS AT TIME OF D/C FROM NURSE, FAMILY, OR PATIENT.
== END 2024-08-11 18:00 | DRG 481 ==
LOC: ER 08:11 → MEDS 10:24 → SURS 10:24 → MEDS 08-04 16:54
PROVIDERS: Orthopaedic Surgery; Student in an Organized Health Care Education/Training Program; ADMIT Internal Medicine
PROC: 0QH604Z Insertion of Internal Fixation Device into Right Upper Femur, Open Approach (ICD-10-PCS; principal; 2024-08-03 14:15)
DX: S72.011A Unspecified intracapsular fracture of right femur, initial encounter for closed fracture (principal); F02.811 Dementia in other diseases classified elsewhere, unspecified severity, with agitation; F05 Delirium due to known physiological condition; E11.9 Type 2 diabetes mellitus without complications; I10 Essential (primary) hypertension; N40.1 Benign prostatic hyperplasia with lower urinary tract symptoms; R33.8 Other retention of urine; W01.0XXA Fall on same level from slipping, tripping and stumbling without subsequent striking against object, initial encounter; H54.62 Unqualified visual loss, left eye, normal vision right eye; G30.9 Alzheimer's disease, unspecified; Y92.002 Bathroom of unspecified non-institutional (private) residence as the place of occurrence of the external cause; Z78.1 Physical restraint status; Z87.891 Personal history of nicotine dependence; Z79.84 Long term (current) use of oral hypoglycemic drugs; Z79.82 Long term (current) use of aspirin; Z88.1 Allergy status to other antibiotic agents
CPT/HCPCS: 36415; 72192; 73503; 80048; 80053; 81001; 82947; 84484; 85025; 85610; 87426-QW; 93005; 93010; 97110; 97116; 97162; 97165; 97530; 97535; 99285-25; A9270; C1713; C1769; J1650; J1815; J2270; J2704; J3010; J7050; J7120

== ENCOUNTER 2024-08-29 09:23 | Emergency (ER) | payer OTHER, MEDICARE ==
[~2024-08-29] VITALS: Ht 167.6 cm; Wt 83.9 kg
[~2024-08-29 09:23] MED LIST changes: +ACET500 PO; +DOCU100 PO; +DONEPEZIL HCL5 M2 PO; +FAMO20 PO; +FINA5 PO; +HYDR1TAB94 PO; +METFORMIN HCL500 M3 PO; +MIRALAX17 GM PO; +QUET25 PO; +SENN187 PO; +Seroquel Xr50 MG PO; +TAMS.4ER PO
[2024-08-29 09:59] VITALS: BP 136/59
[2024-08-29] MEDS ORDERED: BACITRACIN ZIN1 EAC1 TOP (10:51)
== END 2024-08-29 10:56 | disposition home or self-care (01) ==
LOC: ER 09:23
DX: H01.006 Unspecified blepharitis left eye, unspecified eyelid (principal); M79.81 Nontraumatic hematoma of soft tissue; I10 Essential (primary) hypertension; E78.5 Hyperlipidemia, unspecified; Z79.84 Long term (current) use of oral hypoglycemic drugs; Z79.82 Long term (current) use of aspirin; Z79.899 Other long term (current) drug therapy; Z88.1 Allergy status to other antibiotic agents
CPT/HCPCS: 73562-RT; 99283-25